=== PATIENT | male | born 1955 | race Caucasian/White ===

== ENCOUNTER 2018-09-09 10:50 | Emergency (ER) | payer BC ==
--- NOTE | 2018-09-09 11:24 | EDM.PDOC ---
ED HPI GENERAL MEDICAL PROBLEM - General Chief Complaint: General Stated Complaint: syncope Time Seen by Provider: 09/09/18 11:00 Source of Information: Reports: Patient, Family History Limitations: Reports: No Limitations - History of Present Illness INITIAL COMMENTS - FREE TEXT/NARRATIVE: 63 YO WM presents to ER by EMS with syncopal episode this am. Pt reports he has been feeling ill for the past 3 days with cough, congestion, nausea, and subjective fevers. Pt states he woke this am and while in restroom began to feel dizzy causing him to sit down. Pt reports having dry heaves just prior to episode. Pt's reports he was not responding to her briefly causing her to call EMS. Pt states he heard everything she said to him but felt to weak to respond. Pt denies chest pain or shortness of breath. Pt denies focal neuro deficits. Onset Date: 09/07/18 Duration: Day(s): (3) Location: Reports: Generalized Severity: Mild Improves with: Reports: None Worsens with: Reports: None Associated Symptoms: Reports: Cough, cough w sputum, Fever/Chills, Loss of Appetite, Nausea/Vomiting, Syncope, Weakness. Denies: Confusion, Chest Pain, Rash, Seizure, Shortness of Breath generalized paige aches Pain Score (Numeric/FACES): 5 - Related Data Allergies Allergy/AdvReac Type Severity Reaction Status Date / Time Penicillins Allergy Vomiting Verified 09/09/18 11:18 Home Meds: Home Meds Cephalexin [Keflex] 500 mg PO Q8HR #21 capsule 09/09/18 [Rx] Doxazosin Mesylate [Cardura] 4 mg PO DAILY 09/09/18 [History] Fluticasone/Vilanterol [Breo Ellipta 200-25 Mcg INH] 1 puff IH DAILY 09/09/18 [ History] Mirtazapine 45 mg PO BEDTIME 09/09/18 [History] Omeprazole 20 mg PO BEDTIME 09/09/18 [History] Ondansetron [Zofran ODT] 4 mg PO Q6H PRN #10 tab.dis 09/09/18 [Rx] amLODIPine Besylate [Amlodipine Besylate] 2.5 mg PO DAILY 09/09/18 [History] ED ROS GENERAL - Review of Systems Review Of Systems: See Below Constitutional: Reports: Fever, Chills, Malaise, Weakness, Fatigue, Decreased Appetite HEENT: Reports: No Symptoms Respiratory: Reports: Cough, Sputum Cardiovascular: Reports: Lightheadedness, Syncope Endocrine: Reports: No Symptoms GI/Abdominal: Reports: Decreased Appetite, Nausea, Vomiting : Reports: No Symptoms Musculoskeletal: Reports: No Symptoms Skin: Reports: No Symptoms Neurological: Reports: Dizziness, Syncope, Weakness. Denies: Difficulty Walking , Change in Speech Psychiatric: Reports: No Symptoms Hematologic/Lymphatic: Reports: No Symptoms Immunologic: Reports: No Symptoms ED EXAM, GENERAL - Physical Exam Exam: See Below Exam Limited By: No Limitations General Appearance: Alert, WD/WN, No Apparent Distress Eye Exam: Bilateral Eye: EOMI, PERRL Nose: Normal Inspection, Normal Mucosa, No Blood Throat/Mouth: Normal Inspection, Normal Lips, Normal Teeth, Normal Gums, Normal Oropharynx, Normal Voice, No Airway Compromise Head: Atraumatic, Normocephalic Neck: Normal Inspection, Supple, Non-Tender, Full Range of Motion Respiratory/Chest: No Respiratory Distress, Lungs Clear, Normal Breath Sounds, No Accessory Muscle Use, Chest Non-Tender Cardiovascular: Normal Peripheral Pulses, Regular Rate, Rhythm, No Edema, No Gallop, No JVD, No Murmur, No Rub GI/Abdominal: Normal Bowel Sounds, Soft, Non-Tender, No Organomegaly, No Distention, No Abnormal Bruit, No Mass Back Exam: Normal Inspection, Full Range of Motion, NT Extremities: Normal Inspection, Normal Range of Motion, Non-Tender, Normal Capillary Refill, No Pedal Edema Neurological: Alert, Oriented, CN II-XII Intact, Normal Cognition, Normal Gait, Normal Reflexes, No Motor/Sensory Deficits Psychiatric: Normal Affect, Normal Mood Skin Exam: Warm, Dry, Intact, Normal Color, No Rash Lymphatic: No Adenopathy Course - Vital Signs Last Recorded V/S: Last Vital Signs Temp 37.1 C 09/09/18 11:05 Pulse 73 09/09/18 11:05 Resp 14 09/09/18 11:05 BP 108/56 L 09/09/18 11:05 Pulse Ox 97 09/09/18 11:05 Orthostatic Blood Pressure [ 124/81 Standing] Orthostatic Blood Pressure [ 110/64 Sitting] Orthostatic Blood Pressure [ 123/65 Supine] - Orders/Labs/Meds Orders: Active Orders 24 hr Category Date Time Status EKG Documentation Completion [RC] ASDIRECTED Care 09/09/18 11:19 Active Orthostatic Vital Signs [RC] ASDIRECTED Care 09/09/18 11:19 Active Peripheral IV Care [RC] . DIRECTED Care 09/09/18 11:18 Active Sodium Chloride 0.9% [Saline Flush] Med 09/09/18 11:18 Active 10 ml FLUSH Q8HR PRN Peripheral IV Insertion Adult [OM.PC] Routine Oth 09/09/18 11:18 Ordered EKG 12 Lead [EK] Routine Ther 09/09/18 11:19 Ordered Medication Orders Sodium Chloride (Saline Flush) 10 ml FLUSH Q8HR PRN PRN Reason: keep vein open Last Admin: 09/09/18 12:32 Dose: 10 ml Labs: Laboratory Tests 09/09/18 09/09/18 09/09/18 Range/Units 11:25 11:55 12:40 WBC 6.21 (5.00-10.00) 10^3/uL RBC 4.95 (4.50-6.00) 10^6/uL Hgb 14.7 (13.0-17.0) g/dL Hct 43.2 (40.0-52.0) % MCV 87.3 (82.0-92.0) fL MCH 29.7 (27.0-31.0) pg MCHC 34.0 (32.0-36.0) g/dL RDW 13.0 (11.5-14.5) % Plt Count 151 (150-400) 10^3/uL MPV 9.5 (7.4-10.4) fL Immature Gran % (Auto) 0.3 (0.0-5.0) % Neut % (Auto) 71.1 H (50.0-70.0) % Lymph % (Auto) 11.8 L (20.0-40.0) % [place] % (Auto) 16.4 H (2.0-8.0) % Eos % (Auto) 0.2 L (1.0-3.0) % Baso % (Auto) 0.2 (0.0-1.0) % Immature Gran # (Auto) 0.02 (0.00-0.50) 10^3/uL Neut # (Auto) 4.42 (2.50-7.00) 10^3/uL Lymph # (Auto) 0.73 L (1.00-4.00) 10^3/uL [place] # (Auto) 1.02 H (0.10-0.80) 10^3/uL Eos # (Auto) 0.01 L (0.10-0.30) 10^3/uL Baso # (Auto) 0.01 (0.00-0.10) 10^3/uL Sodium 139 (136-145) mmol/L Potassium 3.8 (3.3-5.3) mmol/L Chloride 105 (98-115) mmol/L Carbon Dioxide 24.2 (21.0-32.0) mmol/L Anion Gap 13.6 (5-15) mmol/L BUN 16 (6-25) mg/dL Creatinine 0.83 (0.51-1.17) mg/dL Est Cr Clr Drug Dosing 108.88 mL/min Estimated GFR (MDRD) > 60 mL/min Glucose 98 (75 - 99) mg/dL Calcium 7.9 L (8.7-10.3) mg/dL Total Bilirubin 0.4 (0.2-1.0) mg/dL AST 20 (15-37) U/L ALT 25 (12-78) U/L Alkaline Phosphatase 71 (46-116) IU/L Creatine Kinase 90 (26-276) U/L CK-MB (CK-2) < 0.50 (0.00-4.30) ng/mL Troponin I 0.04 (0.00-0.070) ng/mL Total Protein 6.5 (6.4-8.2) g/dL Albumin 3.26 (3.00-4.80) g/dL Specimen Type Urinvoid Urine Color Dark yellow H (YELLOW) Urine Appearance Slightly cloudy H (CLEAR) Urine pH 6.0 (5.0-9.0) Ur Specific [place] >= 1.030 (1.005-1.030) Urine Protein 100 H (NEGATIVE) mg/dL Urine Glucose (UA) Negative (NEGATIVE) mg/dL Urine Ketones 15 H (NEGATIVE) mg/dL Urine Occult Blood Moderate H (NEGATIVE) Urine Nitrite Negative (NEGATIVE) Urine Bilirubin Small H (NEGATIVE) Urine Urobilinogen 0.2 (0.2-1.0) E.U./dL Ur Leukocyte Esterase Negative (NEGATIVE) Urine RBC 5-10 H (0-5) /HPF Urine WBC 10-20 H (0-5) /HPF Ur Epithelial Cells Moderate H /LPF Urine Bacteria Moderate H (NONE TO FEW) /HPF Urine Mucus Many H (NEGATIVE) /LPF Meds: Medications Generic Name Dose Route Start Last Admin Trade Name Freq PRN Reason Stop Dose Admin Sodium Chloride 10 ml 09/09/18 11:18 09/09/18 12:32 Saline Flush FLUSH 10 ml Q8HR PRN Administration keep vein open Discontinued Medications Generic Name Dose Route Start Last Admin Trade Name Freq PRN Reason Stop Dose Admin Sodium Chloride 1,000 mls @ 999 mls/hr 09/09/18 11:18 09/09/18 12:31 Normal Saline IV 09/09/18 12:18 999 mls/hr .BOLUS ONE Administration - Radiology Interpretation Free Text/Narrative:: CXR- elevated right hemidiaphram- no change from 2009; otherwise NAD CT head- Departure - Departure Time of Disposition: 13:16 Disposition: Home, Self-Care 01 Condition: Fair Clinical Impression: Influenza A, Dehydration Urinary tract infection Qualifiers: Urinary tract infection type: acute cystitis Hematuria presence: without hematuria Qualified Code(s): N30.00 - Acute cystitis without hematuria - Discharge Information Prescriptions: Cephalexin [Keflex] 500 mg PO Q8HR #21 capsule Ondansetron [Zofran ODT] 4 mg PO Q6H PRN #10 tab.dis PRN Reason: Nausea Instructions: Influenza, Adult, Dehydration, Adult, Urinary Tract Infection, Adult, [id number] Referrals: Althea Williamson PA-C [Primary Care Provider] - Forms: ED Department Discharge Additional Instructions: 1. discharge home 2. zyrtec 10mg PO QD 3. benadryl 50mg PO QHS PRN 4. zofran 4mg ODT Q8 PRN nausea 5. plenty of fluids 6. tylenol/motrin PRN 7. follow up this week in clinic for recheck 8. continue albuterol Q4 and PRN 9. return to ER for worsening symptoms - My Orders Last 24 Hours: My Active Orders 09/09/18 11:18 Peripheral IV Care [RC] . DIRECTED Sodium Chloride 0.9% [Saline Flush] 10 ml FLUSH Q8HR PRN Peripheral IV Insertion Adult [OM.PC] Routine 09/09/18 11:19 EKG Documentation Completion [RC] ASDIRECTED Orthostatic Vital Signs [RC] ASDIRECTED EKG 12 Lead [EK] Routine - Assessment/Plan Last 24 Hours: My Active Orders 09/09/18 11:18 Peripheral IV Care [RC] . DIRECTED Sodium Chloride 0.9% [Saline Flush] 10 ml FLUSH Q8HR PRN Peripheral IV Insertion Adult [OM.PC] Routine 09/09/18 11:19 EKG Documentation Completion [RC] ASDIRECTED Orthostatic Vital Signs [RC] ASDIRECTED EKG 12 Lead [EK] Routine Assessment:: 1. Influenza A 2. dehydration 3. possible UTI Plan: 1. discharge home 2. zyrtec 10mg PO QD 3. benadryl 50mg PO QHS PRN 4. zofran 4mg ODT Q8 PRN nausea 5. plenty of fluids 6. tylenol/motrin PRN 7. follow up this week in clinic for recheck 8. continue albuterol Q4 and PRN 9. return to ER for worsening symptoms
[2018-09-09] MEDS: Sodium Chloride 0.9% 1,000 ML IV ONE (12:31)
[2018-09-09] MEDS: Sodium Chloride 0.9% 10 ML Syringe FLUSH PRN (12:32)
[2018-09-09 12:39] LABS: ANION GAP 13.6 mmol/L (5-15); CHLORIDE,CL 105 mmol/L (98-115); SODIUM,NA 139 mmol/L (136-145)
--- NOTE | 2018-09-09 12:50 | CR ---
[id number] RAD/RAD Chest PA or AP 1V EXAM: RAD Chest PA or AP 1V INDICATION: SYNCOPE. COMPARISON: September 2009 DISCUSSION: Persistent elevation of right hemidiaphragm, similar to chest CT from 2009. Chest is otherwise unremarkable. IMPRESSION: As above. Renato Hahn MD 09/09/18 [id number] Thank you for allowing us to participate in the care of your patient.
--- NOTE | 2018-09-09 12:57 | CT ---
[id number] CT/CT Head WO IV EXAM: CT Head WO IV CLINICAL DATA: SYNCOPE. COMPARISON STUDY: None FINDINGS: No intracranial hemorrhage, extra-axial fluid collection, mass, or acute ischemia. Soft tissues are unremarkable. Paranasal sinuses and mastoid air cells are clear. IMPRESSION: No acute intracranial findings. Ck Bañuelos DO 09/09/18 [id number] Thank you for allowing us to participate in the care of your patient.
== END 2018-09-09 13:45 | disposition home or self-care (01) ==
LOC: KA.ED 10:50
DX: J10.1 Influenza due to other identified influenza virus with other respiratory manifestations (principal); N30.00 Acute cystitis without hematuria; E86.0 Dehydration; Z88.0 Allergy status to penicillin; Z79.899 Other long term (current) drug therapy
CPT/HCPCS: 70450; 71045; 80053; 81001; 82550; 82553; 84484; 85025; 87086; 87804; 93005; 96360; 99285; J7030